=== PATIENT | female | born 1970 | race Caucasian/White ===

== ENCOUNTER 2024-02-17 19:35 | Emergency (ER) | payer OTHER, BC, SELFPAY ==
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
[2024-02-17 19:42] VITALS: BP 157/95; PULSE 74; RESP 16; TEMP 36.2; O2SAT 100
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
[2024-02-17 21:35] VITALS: BP 124/87; PULSE 86; RESP 17; TEMP 36.7; O2SAT 100
== END 2024-02-17 21:35 | disposition home or self-care (01) ==
LOC: ANHED 21:50
PROVIDERS: Emergency Provider Emergency Medicine; PCP Family Medicine Adolescent Medicine
DX: R51.9 Headache, unspecified (principal); V49.40XA Driver injured in collision with unspecified motor vehicles in traffic accident, initial encounter
CPT/HCPCS: 70450; 99284